=== PATIENT | male | born 1995 | race Caucasian/White ===

== ENCOUNTER 2018-05-13 11:22 | Emergency (ER) | payer OTHER ==
[~2018-05-13] VITALS: Ht 170.2 cm; Wt 65.9 kg
[2018-05-13] MEDS ORDERED: LIDOCAINE HCL/PF 1% 5 ML VIAL INJ ONE (12:15)
[2018-05-13] MEDS ORDERED: BACITRACIN 0.9 GM PACKET OINTMENT TP ONE (12:15)
[2018-05-13] MEDS ORDERED: PERTUSS(ACELL),DIPH,TET VAC/PF 0.5 ML VIAL IM ONE (12:15)
[2018-05-13 13:11] LABS: AMPHET/METH SCREEN,URINE NEGATIVE (NEGATIVE); BARBITURATE SCREEN, URINE NEGATIVE (NEGATIVE); BENZODIAZEPINES SCREEN,URINE NEGATIVE (NEGATIVE); CANNABINOID SCREEN,URINE POSITIVE (NEGATIVE); COCAINE SCREEN,URINE NEGATIVE (NEGATIVE); METHADONE SCREEN, URINE NEGATIVE (NEGATIVE); OPIATE SCREEN,URINE NEGATIVE (NEGATIVE)
[2018-05-13 13:12] LABS: PHENCYCLIDINE SCREEN,URINE NEGATIVE (NEGATIVE)
[2018-05-13 14:22] VITALS: BP 115/71
== END 2018-05-13 14:24 | disposition home or self-care (01) ==
LOC: EMS 11:24
DX: S61.512A Laceration without foreign body of left wrist, initial encounter (principal); W27.8XXA Contact with other nonpowered hand tool, initial encounter; Y93.89 Activity, other specified; Y92.89 Other specified places as the place of occurrence of the external cause; Y99.8 Other external cause status
CPT/HCPCS: 12002; 80307; 90471; 90715; 99283; J3490

== ENCOUNTER 2018-05-19 09:48 | Emergency (ER) | payer OTHER ==
[~2018-05-19] VITALS: Ht 175.3 cm; Wt 79.5 kg
[2018-05-19 10:05] VITALS: BP 129/82
== END 2018-05-19 11:00 | disposition home or self-care (01) ==
LOC: EMS 09:49
DX: Z48.02 Encounter for removal of sutures (principal)
CPT/HCPCS: 99281

== ENCOUNTER 2018-05-22 08:11 | Emergency (ER) | payer OTHER ==
[~2018-05-22] VITALS: Ht 170.2 cm; Wt 79.5 kg
[2018-05-22 08:24] VITALS: BP 120/73
== END 2018-05-22 09:50 | disposition home or self-care (01) ==
LOC: EMS 08:18
DX: Z48.02 Encounter for removal of sutures (principal)
CPT/HCPCS: 99281